=== PATIENT | male | born 1985 | race Two or more races ===

== ENCOUNTER 2025-05-19 21:36 | Emergency (ER) | payer MEDICAID ==
[~2025-05-19] VITALS: Ht 185.4 cm; Wt 104.3 kg
[2025-05-19] MEDS: IV NS 0.9% 1,000 ML BAG IV ONE (22:02)
[2025-05-19 22:12] LABS: PLATELET COUNT (AUTO) 323 K/uL (150-450); RED BLOOD CELL COUNT(AUTO) 4.99 MIL/uL (4.5-6.0); RED CELL DISTRIBUTION WIDTH 14.7 % (11.5-15.0); WHITE BLOOD COUNT (AUTO) 13.0 K/uL (4.3-11.0)
[2025-05-19 22:20] LABS: CALCIUM, SERUM 9.5 mg/dL (8.5-10.1); CREATININE 1.4 mg/dL (0.6-1.3); SODIUM SERUM 140 mmol/L (136-145); UREA NITROGEN, BLOOD 23 mg/dL (7-18)
[2025-05-20] MEDS ORDERED: KETO10TA2 PO (01:13)
[2025-05-20] MEDS ORDERED: KETOROLAC TROMETHAMINE 15 MG/ML VIAL ONE (01:44)
[2025-05-20] MEDS: KETOROLAC TROMETHAMINE 15 MG/ML VIAL IV ONE (01:51)
[2025-05-20 01:58] VITALS: BP 122/82; TEMP 98.3; O2SAT 97
== END 2025-05-20 01:58 | disposition home or self-care (01) ==
LOC: ER 21:41
DX: E86.0 Dehydration (principal); R55 Syncope and collapse; R07.89 Other chest pain; R06.02 Shortness of breath; Z60.2 Problems related to living alone
CPT/HCPCS: 99285; 71045; 96361; 93005; 85025; 80048; 82550; 36415; 84484 ×2; 96374; J1885; 82553